=== PATIENT | male | born 1930 | race Caucasian/White ===

== ENCOUNTER 2017-04-20 12:41 | Inpatient (IN) | payer OTHER ==
[~2017-04-20] VITALS: Ht 157.5 cm; Wt 64.9 kg
[~2017-04-20 12:41] MED LIST: ADULT LOW DOSE81 MG PO; ALLERGY RELIEF4 MG PO; ASPIRIN81 M2 PO; AUGMENTIN 875875 MG PO; CENTRUM SILVER1 EAC2 PO; COUGH DM30 MG/5 ML PO; COZAAR 25 MG TA25 M1 PO; HCTZ PO; HYDROCHLOROTHIA25 M2 PO; IBUPROFEN200 M2; IMDUR 30 MG TAB30 M1 PO; IRON325; IRON325 PO; K-TAB10 MEQ PO; KLOR-CON 1010 MEQ PO; LASIX 20 MG TAB20 MG PO; LEVAQUIN 500 M500 M2 PO; LOPRESSOR25 PO; LOVASTATIN 20 M20 MG PO; MAGOX 400400 MG PO; MISC; NITROGLYCERIN0.4 MG SUBLING; NITROLINGUAL PU12 G1; NORVASC5 MG PO; OMEPRAZOLE; OMEPRAZOLE20 M2 PO; PEPCID PO; PERCOCET 5-3251 EACH PO; PLAVIX 75 MG TA75 M1 PO; PLAVIX 75 MG TA75 MG PO; POTASSIUM GLUCO99 M2 PO; SIMVASTATIN40 MG PO; SORINE 80 MG TA80 M1 PO; TOPROL XL25 MG PO; ZESTRIL2.5 MG PO
[2017-04-20 12:51] VITALS: BP 71/47
[2017-04-20] MEDS ORDERED: LASIX 20 MG TAB20 MG PO (13:11)
[2017-04-20] MEDS ORDERED: CEFDINIR300 MG PO (13:11)
[2017-04-20] MEDS ORDERED: DUONEB 2.5-0.5 M3 ML INH (13:11)
[2017-04-20] MEDS ORDERED: BAYER CHEWABLE81 MG PO (13:11)
[2017-04-20] MEDS ORDERED: OCUVEL CAPSULE1 EACH PO (13:12)
[2017-04-20] MEDS ORDERED: PLAVIX 75 MG TA75 M1 PO (13:12)
[2017-04-20 13:13] LABS: ABSOLUTE BASOPHILS 0.1 thou/uL (0.0-0.2); ABSOLUTE EOSINOPHILS 0.4 thou/uL (0.0-0.7); ABSOLUTE LYMPHOCYTES 1.6 thou/uL (0.8-5.3); ABSOLUTE MONOCYTES 1.1 thou/uL (0.0-1.2); ABSOLUTE NEUTROPHILS 7.7 thou/uL (1.6-8.1); HEMATOCRIT 30.8 % (42.0-52.0); HEMOGLOBIN 10.4 gm/dL (14.0-18.0); LYMPHOCYTES 14.7 %; MCH 32.4 pg (26.0-34.0); MCHC 33.7 g/dL (28.0-37.0); MCV 96.2 fL (80.0-100.0); MONOCYTES 10.4 %; MPV 8.5 fl. (7.2-11.1); NUCLEATED RBCS 0 /100WBC; PLATELET COUNT* 183 thou/uL (150-400); POLYS 69.9 %
[2017-04-20] MEDS ORDERED: LISINOPRIL10 MG PO (13:13)
[2017-04-20] MEDS ORDERED: KLOR-CON 1010 MEQ PO (13:13)
[2017-04-20] MEDS ORDERED: LIPITOR80 MG PO (13:13)
[2017-04-20] MEDS ORDERED: PROTONIX40 M1 PO (13:14)
[2017-04-20] MEDS ORDERED: CARVEDILOL12.5 MG PO (13:15)
[2017-04-20 13:25] LABS: CALCIUM 8.4 mg/dL (8.5-10.1); CREATININE 1.8 mg/dL (0.6-1.3)
[2017-04-20 13:26] LABS: APTT 24.3 Seconds (25.0-31.3); PROTIME 10.1 Seconds (9.20-11.50)
[2017-04-20 13:28] LABS: POTASSIUM 5.2 mmol/L (3.5-5.1)
[2017-04-20 13:49] LABS: ALBUMIN 2.9 g/dL (3.4-5.0); CK-MB MASS 0.7 ng/mL (<0.5-3.6); MAGNESIUM 1.9 mg/dL (1.8-2.4); TOTAL BILIRUBIN 0.4 mg/dL (<0.1-1.0); TOTAL PROTEIN 6.5 g/dL (6.4-8.2); TROPONIN-I LEVEL 0.07 ng/mL (<0.06)
[2017-04-20] MEDS ORDERED: TUMS PO (16:22)
[2017-04-20] MEDS ORDERED: VOLTAREN GEL 1100 G2 TOP (16:25)
[2017-04-20 17:40] VITALS: BP 113/56
--- NOTE | 2017-04-20 18:13 | EKG ---
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 : 1930 Requested By: Luis Manuel Ely Order Number: [id number] MD: Kenn Hernandez Measurements Intervals [place] Rate: 157 P: [place]: QRS: -49 QRSD: 104 T: 99 QT: 279 QTc: 451 Interpretive Statements Atrial fibrillation with rapid V-rate Multiple ventricular premature complexes Left anterior fascicular block Anterior infarct, old, possible Repolarization abnormality, prob rate related Baseline wander in lead(s) V6 Compared to ECG 04/05/2016 08:03:55 Myocardial infarct finding now present Sinus tachycardia no longer present First degree AV block no longer present Electronically Signed On 04-20-2017 18:13:25 CDT by Kenn Hernandez [email or web address] <ELECTRONICALLY SIGNED> By: Kenn Hernandez MD, FACC 04/20/17 1813 1248 [id number] Kenn Hernandez MD, [facility] /EPI
--- NOTE | 2017-04-20 18:14 | EKG ---
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 CARRILLO : 1930 Requested By: Luis Manuel Ely Order Number: [id number] MD: Kenn Hernandez Measurements Intervals [place] Rate: 68 P: -62 [place]: 345 QRS: -44 QRSD: 105 T: 62 QT: 369 QTc: 393 Interpretive Statements Sinus or ectopic atrial rhythm Prolonged TX interval Left anterior fascicular block Compared to ECG 04/05/2016 08:03:55 Ectopic atrial rhythm now present Sinus tachycardia no longer present Ventricular premature complex(es) no longer present Electronically Signed On 04-20-2017 18:14:19 CDT by Kenn Hernandez [email or web address] <ELECTRONICALLY SIGNED> By: Kenn Hernandez MD, FACC 04/20/17 1814 1337 1337 Kenn Hernandez MD, FAC /EPI
--- NOTE | 2017-04-20 18:30 | NUR ---
RECEIVED RPEORT FROM [facility] IN ER. PT TRANSFERED TO TELE FLOOR AT 1800. VSS. PT ALERT AND ORIENTED TO PLACE, PERSON AND SITAUTION. CLASSROOM MONITOR IN PLACE TRACING SR 1DEGREE. PT DENIES PAIN OR DISCOMFORT. PT EATING AND DRINKING WITHOUT ISSUE. PT OREINTED TO ROOM, BED AND CALL LIGHT. ADMISSION HISTORY, ASSESSMENT AND EDUCATION COMPLETED CHARTED. FAMILY AT BEDSIDE. FALL PRECATUIONS IN PLACE. CALL LIGHT IS WITHIN REACH. HOURLY ROUNDING PRFORMED.
[2017-04-20 20:00] VITALS: BP 101/57
[2017-04-21 00:12] VITALS: BP 99/65
[2017-04-21 03:49] VITALS: BP 98/65
--- NOTE | 2017-04-21 05:44 | NUR ---
PT CARE ASSUMED AFTER REPORT. ASSESSMENT COMPLETE. SR/1ST DEGREE ON MONITOR. DENIES PAIN. FALL PRECAUTIONS IN PLACE INCLUDING BED ALARM. CALL LIGHT IN REACH. BED IN LOWEST POSITION. PROGRESSING TOWARDS GOALS.
[2017-04-21 08:02] LABS: HEMATOCRIT 24.5 % (42.0-52.0); MCH 32.3 pg (26.0-34.0); MCHC 34.3 g/dL (28.0-37.0); MCV 94.2 fL (80.0-100.0); MPV 8.4 fl. (7.2-11.1); RBC 2.6 mil/uL (4.50-6.00); RDW-CV 13.8 % (10.5-14.5); WBC 7.3 thou/uL (4.0-11.0)
[2017-04-21 08:12] LABS: CALCIUM 7.9 mg/dL (8.5-10.1); CREATININE 1.4 mg/dL (0.6-1.3); MAGNESIUM 1.8 mg/dL (1.8-2.4); POTASSIUM 4.5 mmol/L (3.5-5.1)
[2017-04-21 08:20] VITALS: BP 112/76
[2017-04-21 08:24] LABS: HEMOGLOBIN 8.4 gm/dL (14.0-18.0)
[2017-04-21 12:00] VITALS: BP 125/78
--- NOTE | 2017-04-21 15:28 | 2DMMODE ---
[place] [address] 2 D/M-MODE ECHOCARDIOGRAM Name: CHARLIE PINEDA Room: [place] [address] ADM IN [facility]#: [id number] Admission: 04/20/17 Attend Phys: Oni Macias, Discharge: Date of : [birth year] Date of Service: 04/21/17 1527 Report #: [id number] THIS REPORT FOR: //name// APPROVED REPORT Study performed: 04/20/2017 17:15:47 EXAM: Comprehensive 2D, Doppler, and color-flow Echocardiogram Patient Location: In-Patient Room #: er Status: routine BSA: 1.67 HR: 78 bpm BP: 92/53 mmHg Rhythm: NSR Other Information Study Quality: Good Indications Atrial Fibrillation 2D Dimensions LVEF(%): 67.76 (>50%) IVSd: 11.79 (7-11mm) LVOT Diam: 18.30 (18-24mm) LVDd: 51.02 mm PWd: 11.38 (7-11mm) Ascending Ao: 35.41 (22-36mm) LVDs: 31.67 (25-40mm) Aortic Root: 27.49 mm Watson's LVEF: 67.76 % Volumes Left Atrial Volume (Systole) LA ESV Index: 41.30 mL/m2 Aortic Valve AoV Peak Ruben.: 2.11 m/s AO Peak Gr.: 17.78 mmHg LVOT Max P.83 mmHg AO Mean Gr.: 10.88 mmHg LVOT Mean P.50 mmHg LVOT Max V: 1.21 m/s AO V2 VTI: 41.63 cm LVOT Mean V: 0.88 m/s VIANNEY (VTI): 1.60 cm2 LVOT V1 VTI: 25.27 cm Mitral Valve E/A Ratio: 1.13 [place] [address] 2 D/M-MODE ECHOCARDIOGRAM Name: CHARLIE PINEDA Room: [address] IN ..#: [id number] Admission: 04/20/17 Attend Phys: Oni Macias, Discharge: Date of : [birth year] Date of Service: 04/21/17 1527 Report #: [id number] MV Decel. Time: 219.63 ms MV E Max Ruben.: 0.80 m/s MV PHT: 63.69 ms MVA (PHT): 3.45 cm2 TDI E/Lateral E': 10.00 E/Medial E': 11.43 Medial E' Ruben.: 0.07 m/s Lateral E' Ruben.: 0.08 m/s Pulmonary Valve PV Peak Ruben.: 0.89 m/s PV Peak Gr.: 3.16 mmHg Tricuspid Valve TR Peak Gr.: 19.22 mmHg RVSP: 24.00 mmHg Left Ventricle The left ventricle is normal size. There is normal LV segmental wall motion. There is normal left ventricular wall thickness. Left ventricular systolic function is normal. The left ventricular ejection fraction is within the normal range. LVEF is 60-65%. The left ventricular diastolic function is normal. Right Ventricle The right ventricle is normal size. The right ventricular systolic function is normal. Atria Left atrium is moderately dilated. The right atrium size is normal. Aortic Valve Mild aortic valve sclerosis. Mild aortic regurgitation. Mild aortic stenosis. Mitral Valve The mitral valve is normal in structure. Mild mitral regurgitation. No evidence of mitral valve stenosis. Tricuspid Valve The tricuspid valve is normal in structure. Trace tricuspid regurgitation. The RVSP is ____24___ mmHg. Pulmonic Valve The pulmonary valve is normal in structure. There is no pulmonic [place] [address] 2 D/M-MODE ECHOCARDIOGRAM Name: CHARLIE PINEDA Room: [address] IN [facility].#: [id number] Admission: 04/20/17 Attend Phys: Oni Macias, Discharge: Date of : [birth year] Date of Service: 04/21/17 1527 Report #: [id number] Great Vessels The aortic root is normal in size. IVC is normal in size and collapses with >50% inspiration Pericardium There is no pericardial effusion. <Conclusion> Left ventricular systolic function is normal. The left ventricular ejection fraction is within the normal range. LVEF is 60-65%. The left ventricular diastolic function is normal. No aortic regurgitation is present. Mild aortic valve sclerosis. Mild aortic stenosis. Mild mitral regurgitation. Trace tricuspid regurgitation. The RVSP is ____24___ mmHg. There is no pulmonic valvular regurgitation. <ELECTRONICALLY SIGNED> By: Alverto Varma MD, FACC 04/21/17 1527 1527 152 Alverto Varma MD, FACC /INF
[2017-04-21 16:28] VITALS: BP 121/61
--- NOTE | 2017-04-21 18:44 | NUR ---
RECEIVED REPORT. ASSUMED CARE OF PT AT 0730. PT ALERT, ORIENTED TO PERSON, PLACE, AND SITUATION, NOT TIME. VSS. O2 SAT 97% ON 2L PER NC. SAMPLE PASTER IN PLACE TRACING SR WITH 1DEGREE AV BLOCK. AM ASSESSMETN AND VITALS COMPLETED CHARTED. PT HAS DENIED PAIN OR DISCOMFORT THROUGHOUT THE SHIFT. PT EATING AND DRINKING WITHOUT ISSUE. IV SALINE LOCKED. PT UP TO BATHROOM WITH ASSIST X1. VOIDING WITHOUT ISSUE. FAMILY VISITED THIS AFTERNOON. UPDATED DAUGHTER ON PLAN OF CARE. PT PROGRESSING TOWARDS GOALS. PT REPOSITIONED IN THE BED Q2HRS FOR COMFORT, PT ALSO TURNING SELF. PT SAT UP IN BEDSIDE CHAIR FOR LUNCH. PT CURRENTLY RESTING IN BED. FALL PRECAUTIONS IN PLACE. CALL LIGHT IS WITHIN [facility]. HOURLY ROUNDING PERFORMED. WILL CONTINUE TO MONITOR FOR DURATION OF SHIFT.
[2017-04-21 20:00] VITALS: BP 119/77
[2017-04-22 00:12] VITALS: BP 123/79
[2017-04-22 04:00] VITALS: BP 95/48
[2017-04-22 05:32] LABS: CREATININE 1.2 mg/dL (0.6-1.3); MAGNESIUM 1.8 mg/dL (1.8-2.4); POTASSIUM 4.4 mmol/L (3.5-5.1)
--- NOTE | 2017-04-22 06:34 | NUR ---
RESTING MOST OF NIGHT. BED IN LOW POSITION, CALL LIGHT WITHIN REACH, BED ALARM ON. DENIES COMPLAINTS OF PAIN OR DISCOMFORT AT THIS TIME. NO SIGN OF DISTRESS. WILL PROCEED WITH CURRENT PLAN OF CARE AT THIS TIME.
[2017-04-22 08:00] VITALS: BP 115/66
[2017-04-22] MEDS ORDERED: CARVEDILOL12.5 MG PO (10:22)
--- NOTE | 2017-04-22 11:20 | NUR ---
RECEIVED REPORT. ASSUMED CARE OF PT AT 0730. PT ALERT, ORIENTED TO PERSON, PLACE, SITUTION, BUT NOT TIME. [place]. VSS. O2 SAT 96% ON 2L PER NC. WHIPPER IN PLACE TRACING SR WITH 1 DEGREE AV BLOCK. AM ASSESSMENT AND VITALS COMPLETED CHARTED. IV'S SALINE LOCKED. PT DENIES PAIN OR DISCOMFORT. PT EATING AND DRINKING WITHOUT ISSUE. PT UP WITH ASSIST X1, VOIDING PER URINAL WITHOUT ISSUE. PT REPORTS BM LAST NIGHT. PT INFORMED OF PLAN OF CARE, COMMUNICATES UNDERSTANDING. FAMILY AT BEDSIDE, UPDATED ON PLAN; PT TO DC TODAY. FALL PRECAUTIONS IN PLACE. CALL LIGHT IS WITHIN REACH. PT BEING REPOSITIONED Q2HRS FOR COMFORT. WILL CONTINUE TO MONITOR.
[2017-04-22 11:51] VITALS: BP 115/66
--- NOTE | 2017-04-22 12:43 | NUR ---
DISCHARGE ORDERS RECEIVED. DISCHARGE COMPLETED CHARTED. DISCHARGE SUMMARY, EDUCATION AND CARE NOTES GONE OVER WITH THE PT AND DAUGHTER; BOTH COMMUNICATE UNDERSTANDING. CARE NOTES GIVEN. SCRIPT GIVEN. VSS AT TIME OF DC. PT HAPPY TO BE GOING HOME. ALL BELONGINGS GATHERED AND SENT WITH THE PT. IV AND WAD LUBRICATOR REMOVED. PT LEFT UNIT IN WHEEL CHAIR WITH NURSING STAFF. PT LEFT HOSPITAL WITH DAUGHTER AND GRANDKIDS IN TRUCK.
== END 2017-04-22 12:47 | disposition home or self-care (01) | DRG 280 ==
LOC: M.ERS 12:41 → M.TBA-ER 14:00 → M.2W 14:00
PROVIDERS: Emergency Medicine; ADMIT Internal Medicine
PROC: B24BZZ4 Ultrasonography of Heart with Aorta, Transesophageal (ICD-10-PCS; principal; 2017-04-21)
DX: I21.A1 Myocardial infarction type 2 (principal); N17.0 Acute kidney failure with tubular necrosis; I13.0 Hypertensive heart and chronic kidney disease with heart failure and stage 1 through stage 4 chronic kidney disease, or unspecified chronic kidney disease; I50.32 Chronic diastolic (congestive) heart failure; I95.2 Hypotension due to drugs; K21.9 Gastro-esophageal reflux disease without esophagitis; N18.2 Chronic kidney disease, stage 2 (mild); J44.9 Chronic obstructive pulmonary disease, unspecified; I48.0 Paroxysmal atrial fibrillation; I25.10 Atherosclerotic heart disease of native coronary artery without angina pectoris; F03.90 Unspecified dementia, unspecified severity, without behavioral disturbance, psychotic disturbance, mood disturbance, and anxiety; I25.2 Old myocardial infarction; Z87.891 Personal history of nicotine dependence; Z95.5 Presence of coronary angioplasty implant and graft; Z95.2 Presence of prosthetic heart valve; Z91.81 History of falling; Z98.42 Cataract extraction status, left eye; Z98.41 Cataract extraction status, right eye; Z79.02 Long term (current) use of antithrombotics/antiplatelets; Z79.82 Long term (current) use of aspirin; Z79.899 Other long term (current) drug therapy; Z82.49 Family history of ischemic heart disease and other diseases of the circulatory system